=== PATIENT | male | born 1940 | race Caucasian/White ===

== ENCOUNTER 2017-11-07 08:00 | Outpatient (CLI) | payer MEDICARE, OTHER ==
[2017-11-07 13:13] LABS: BASOPHILS # (AUTO) 0.1 10^3/uL (0.0-0.1); EOSINOPHILS # (AUTO) 0.1 10^3/uL (0.0-0.7); EOSINOPHILS % (AUTO) 1.3 %; HGB - HEMOGLOBIN 15.6 g/dL (14.0-18.0); MEAN CORPUSCULAR HEMOGLOBIN 34.5 pg (27.0-31.0); MEAN CORPUSCULAR VOLUME 101.7 fL (80.0-94.0); MONOCYTES # (AUTO) 0.7 10^3/uL (0.0-1.0); MONOCYTES % (AUTO) 10.3 %; NEUTROPHILS # (AUTO) 3.5 10^3/uL (1.5-6.6); NEUTROPHILS % (AUTO) 55.4 %; PLT - PLATELET COUNT 185 10^3/uL (130-450); RED BLOOD COUNT 4.51 10^6/uL (4.70-6.10); RED CELL DISTRIBUTION WIDTH 15.1 % (12.0-15.0); WHITE BLOOD COUNT 6.4 x10^3/uL (4.8-10.8)
[2017-11-07 13:23] LABS: ALBUMIN 4.2 g/dL (3.2-5.5); ALBUMIN/GLOBULIN RATIO 1.6 (1.0-2.2); ALKALINE PHOSPHATASE 60 IU/L (42-121); ALT ALANINE AMINOTRANSFERASE 33 IU/L (10-60); AST ASPARTATE AMINOTRANSFERASE 34 IU/L (10-42); BILIRUBIN,TOTAL 0.7 mg/dL (0.2-1.0); BUN - BLOOD UREA NITROGEN 15 mg/dL (6-20); CALCIUM 9.1 mg/dL (8.5-10.3); CARBON DIOXIDE - CO2 30 mmol/L (21-32); CHLORIDE 101 mmol/L (101-111); CHOL/HDL RATIO 4.5 (<5.0); CHOLESTEROL 234 mg/dL; GFR - MDRD 72 (>89); GLUCOSE 107 mg/dL (70-100); HDL CHOLESTEROL 52 mg/dL; LDL CHOLESTEROL,CALCULATED 144 mg/dL; LDL/HDL RATIO 2.8 (<3.6); SODIUM 138 mmol/L (135-145); TOTAL PROTEIN 6.9 g/dL (6.7-8.2); VLDL CHOLESTEROL 38 mg/dL
== END 2017-11-07 08:01 | disposition home or self-care (01) ==
LOC: LAB.WCP 08:00
PROVIDERS: ATTEND Family Medicine
DX: C61 Malignant neoplasm of prostate (principal); E78.5 Hyperlipidemia, unspecified; I10 Essential (primary) hypertension
CPT/HCPCS: 36415; 80053; 80061; 83721; 84153; 85025

== ENCOUNTER 2018-08-12 13:34 | Outpatient (CLI) | payer MEDICARE, OTHER ==
[2018-08-12 18:56] LABS: INR 1.7 (0.8-1.2); PT - PROTHROMBIN TIME 19.1 secs (9.9-12.6)
== END 2018-08-12 13:35 | disposition home or self-care (01) ==
LOC: LAB.WCP 13:34
PROVIDERS: ATTEND Family Medicine
DX: I48.91 Unspecified atrial fibrillation (principal); Z79.01 Long term (current) use of anticoagulants
CPT/HCPCS: 36415; 85610

== ENCOUNTER 2018-11-15 08:30 | Outpatient (CLI) | payer MEDICARE, OTHER | END 2018-11-15 23:59 | disposition home or self-care (01) | LOC: LAB.WCP 08:30 | PROVIDERS: ATTEND Family Medicine | DX: R19.7 Diarrhea, unspecified (principal) | CPT/HCPCS: 81599; 83630; 86592; 87045; 87046; 87493 ==

== ENCOUNTER 2018-12-05 08:00 | Outpatient (CLI) | payer MEDICARE, OTHER | END 2018-12-05 23:59 | disposition home or self-care (01) | LOC: LAB.WCP 08:00 | PROVIDERS: ATTEND Family Medicine | DX: I48.91 Unspecified atrial fibrillation (principal); Z79.01 Long term (current) use of anticoagulants ==

== ENCOUNTER 2018-12-20 08:00 | Outpatient (CLI) | payer MEDICARE, OTHER | END 2018-12-20 23:59 | disposition home or self-care (01) | LOC: LAB.WCP 08:00 | PROVIDERS: ATTEND Family Medicine | DX: I48.91 Unspecified atrial fibrillation (principal); Z79.01 Long term (current) use of anticoagulants | CPT/HCPCS: 81025 ==

== ENCOUNTER 2019-01-17 08:00 | Outpatient (CLI) | payer MEDICARE, OTHER | END 2019-01-17 23:59 | disposition home or self-care (01) | LOC: LAB.WCP 08:00 | PROVIDERS: ATTEND Family Medicine | DX: I48.91 Unspecified atrial fibrillation (principal); Z79.01 Long term (current) use of anticoagulants ==

== ENCOUNTER 2019-01-31 08:00 | Outpatient (CLI) | payer MEDICARE, OTHER | END 2019-01-31 08:01 | disposition home or self-care (01) | LOC: LAB.WCP 08:00 | PROVIDERS: ATTEND Family Medicine | DX: I48.91 Unspecified atrial fibrillation (principal); Z79.01 Long term (current) use of anticoagulants ==

== ENCOUNTER 2019-02-07 08:00 | Outpatient (CLI) | payer MEDICARE, OTHER | END 2019-02-07 23:59 | disposition home or self-care (01) | LOC: LAB.WCP 08:00 | PROVIDERS: ATTEND Family Medicine | DX: I48.91 Unspecified atrial fibrillation (principal); Z79.01 Long term (current) use of anticoagulants ==

== ENCOUNTER 2019-02-20 08:00 | Outpatient (CLI) | payer MEDICARE, OTHER | END 2019-02-20 23:59 | disposition home or self-care (01) | LOC: LAB.WCP 08:00 | PROVIDERS: ATTEND Family Medicine | DX: I48.91 Unspecified atrial fibrillation (principal); Z79.01 Long term (current) use of anticoagulants ==

== ENCOUNTER 2019-03-06 08:00 | Outpatient (CLI) | payer MEDICARE, OTHER | END 2019-03-06 08:01 | disposition home or self-care (01) | LOC: LAB.WCP 08:00 | PROVIDERS: ATTEND Family Medicine | DX: I48.91 Unspecified atrial fibrillation (principal); Z79.01 Long term (current) use of anticoagulants ==

== ENCOUNTER 2019-03-13 08:00 | Outpatient (CLI) | payer MEDICARE, OTHER | END 2019-03-13 23:59 | disposition home or self-care (01) | LOC: LAB.WCP 08:00 | PROVIDERS: ATTEND Family Medicine | DX: I48.91 Unspecified atrial fibrillation (principal); Z79.01 Long term (current) use of anticoagulants ==

== ENCOUNTER 2019-03-27 08:00 | Outpatient (CLI) | payer MEDICARE, OTHER | END 2019-03-27 08:01 | disposition home or self-care (01) | LOC: LAB.WCP 08:00 | PROVIDERS: ATTEND Family Medicine | DX: I48.91 Unspecified atrial fibrillation (principal); Z79.01 Long term (current) use of anticoagulants ==

== ENCOUNTER 2019-04-24 08:00 | Outpatient (CLI) | payer MEDICARE, OTHER | END 2019-04-24 08:01 | disposition home or self-care (01) | LOC: LAB.WCP 08:00 | PROVIDERS: ATTEND Family Medicine | DX: I48.91 Unspecified atrial fibrillation (principal); Z79.01 Long term (current) use of anticoagulants ==

== ENCOUNTER 2019-05-02 08:00 | Outpatient (CLI) | payer MEDICARE, OTHER | END 2019-05-02 23:59 | disposition home or self-care (01) | LOC: LAB.WCP 08:00 | PROVIDERS: ATTEND Family Medicine | DX: I48.91 Unspecified atrial fibrillation (principal); Z79.01 Long term (current) use of anticoagulants ==

== ENCOUNTER 2019-05-15 08:00 | Outpatient (CLI) | payer MEDICARE, OTHER | END 2019-05-15 23:59 | disposition home or self-care (01) | LOC: LAB.WCP 08:00 | PROVIDERS: ATTEND Family Medicine | DX: I48.91 Unspecified atrial fibrillation (principal); Z79.01 Long term (current) use of anticoagulants ==

== ENCOUNTER 2019-05-22 08:00 | Outpatient (CLI) | payer MEDICARE, OTHER | END 2019-05-22 23:59 | disposition home or self-care (01) | LOC: LAB.WCP 08:00 | PROVIDERS: ATTEND Family Medicine | DX: I48.91 Unspecified atrial fibrillation (principal); Z79.01 Long term (current) use of anticoagulants ==

== ENCOUNTER 2019-06-06 08:00 | Outpatient (CLI) | payer MEDICARE, OTHER | END 2019-06-06 23:59 | disposition home or self-care (01) | LOC: LAB.WCP 08:00 | PROVIDERS: ATTEND Family Medicine | DX: I48.91 Unspecified atrial fibrillation (principal); Z79.01 Long term (current) use of anticoagulants ==

== ENCOUNTER 2019-06-12 08:00 | Outpatient (CLI) | payer MEDICARE, OTHER | END 2019-06-12 23:59 | disposition home or self-care (01) | LOC: LAB.WCP 08:00 | PROVIDERS: ATTEND Internal Medicine Cardiovascular Disease | DX: I48.91 Unspecified atrial fibrillation (principal) | CPT/HCPCS: 36415; 82550; 85651 ==

== ENCOUNTER 2019-06-20 08:00 | Outpatient (CLI) | payer MEDICARE, OTHER | END 2019-06-20 23:59 | disposition home or self-care (01) | LOC: LAB.WCP 08:00 | PROVIDERS: ATTEND Family Medicine | DX: I48.91 Unspecified atrial fibrillation (principal); Z79.01 Long term (current) use of anticoagulants ==

== ENCOUNTER 2019-06-30 08:00 | Outpatient (CLI) | payer MEDICARE, OTHER | END 2019-06-30 23:59 | disposition home or self-care (01) | LOC: LAB.WCP 08:00 | PROVIDERS: ATTEND Physician Assistant Medical | DX: Z79.01 Long term (current) use of anticoagulants (principal); I48.91 Unspecified atrial fibrillation ==

== ENCOUNTER 2019-07-28 08:00 | Outpatient (CLI) | payer MEDICARE, OTHER | END 2019-07-28 23:59 | disposition home or self-care (01) | LOC: LAB.WCP 08:00 | PROVIDERS: ATTEND Physician Assistant Medical | DX: Z79.01 Long term (current) use of anticoagulants (principal); I48.91 Unspecified atrial fibrillation ==

== ENCOUNTER 2019-08-04 08:00 | Outpatient (CLI) | payer MEDICARE, OTHER | END 2019-08-04 23:59 | disposition home or self-care (01) | LOC: LAB.WCP 08:00 | PROVIDERS: ATTEND Physician Assistant Medical | DX: Z79.01 Long term (current) use of anticoagulants (principal); I48.91 Unspecified atrial fibrillation ==

== ENCOUNTER 2019-08-08 13:26 | Outpatient (CLI) | payer MEDICARE, OTHER ==
[2019-08-08 19:18] LABS: BASOPHILS # (AUTO) 0.1 10^3/uL (0.0-0.1); BASOPHILS % (AUTO) 1.1 %; EOSINOPHILS # (AUTO) 0.1 10^3/uL (0.0-0.7); EOSINOPHILS % (AUTO) 1.4 %; HGB - HEMOGLOBIN 14.7 g/dL (14.0-18.0); LYMPHOCYTES # (AUTO) 2.1 10^3/uL (1.5-3.5); LYMPHOCYTES % (AUTO) 33.7 %; MEAN CORPUSCULAR HEMOGLOBIN 33.3 pg (27.0-31.0); MEAN CORPUSCULAR HGB CONC 32.9 g/dL (32.0-36.0); MEAN CORPUSCULAR VOLUME 101.1 fL (80.0-94.0); MEAN PLATELET VOLUME 10.6 fL (7.4-11.4); MONOCYTES # (AUTO) 0.7 10^3/uL (0.0-1.0); MONOCYTES % (AUTO) 11.2 %; NEUTROPHILS # (AUTO) 3.3 10^3/uL (1.5-6.6); NEUTROPHILS % (AUTO) 52.1 %; PLT - PLATELET COUNT 200 10^3/uL (130-450); RED BLOOD COUNT 4.42 10^6/uL (4.70-6.10); RED CELL DISTRIBUTION WIDTH 15.1 % (12.0-15.0); WHITE BLOOD COUNT 6.3 x10^3/uL (4.8-10.8)
[2019-08-08 19:31] LABS: ALBUMIN 4.3 g/dL (3.2-5.5); ALBUMIN/GLOBULIN RATIO 1.6 (1.0-2.2); BILIRUBIN,TOTAL 0.8 mg/dL (0.2-1.0); CALCIUM 9.5 mg/dL (8.5-10.3); CREATININE 0.8 mg/dL (0.6-1.2)
== END 2019-08-08 23:59 | disposition home or self-care (01) ==
LOC: LAB.WCP 13:26
PROVIDERS: ATTEND Family Medicine
DX: I10 Essential (primary) hypertension (principal)
CPT/HCPCS: 36415; 80053; 85025

== ENCOUNTER 2019-08-22 10:00 | Outpatient (CLI) | payer MEDICARE, OTHER | END 2019-08-22 23:59 | disposition home or self-care (01) | LOC: LAB.R 10:00 | PROVIDERS: ATTEND Family Medicine | DX: N39.0 Urinary tract infection, site not specified (principal) | CPT/HCPCS: 87086 ==

== ENCOUNTER 2019-09-29 08:00 | Outpatient (CLI) | payer MEDICARE, OTHER | END 2019-09-29 23:59 | disposition home or self-care (01) | LOC: LAB.WCP 08:00 | PROVIDERS: ATTEND Physician Assistant Medical | DX: Z79.01 Long term (current) use of anticoagulants (principal) ==

== ENCOUNTER 2019-10-13 08:00 | Outpatient (CLI) | payer MEDICARE, OTHER | END 2019-10-13 23:59 | disposition home or self-care (01) | LOC: LAB.WCP 08:00 | PROVIDERS: ATTEND Physician Assistant Medical | DX: Z79.01 Long term (current) use of anticoagulants (principal); I48.91 Unspecified atrial fibrillation ==

== ENCOUNTER 2019-10-27 08:00 | Outpatient (CLI) | payer MEDICARE, OTHER | END 2019-10-27 23:59 | disposition home or self-care (01) | LOC: LAB.WCP 08:00 | PROVIDERS: ATTEND Physician Assistant Medical | DX: Z79.01 Long term (current) use of anticoagulants (principal); I48.91 Unspecified atrial fibrillation ==

== ENCOUNTER 2019-11-10 08:00 | Outpatient (CLI) | payer MEDICARE, OTHER | END 2019-11-10 23:59 | disposition home or self-care (01) | LOC: LAB.WCP 08:00 | PROVIDERS: ATTEND Family Medicine | DX: I48.91 Unspecified atrial fibrillation (principal); Z79.01 Long term (current) use of anticoagulants ==

== ENCOUNTER 2019-11-24 08:00 | Outpatient (CLI) | payer MEDICARE, OTHER | END 2019-11-24 23:59 | disposition home or self-care (01) | LOC: LAB.WCP 08:00 | PROVIDERS: ATTEND Physician Assistant Medical | DX: I48.91 Unspecified atrial fibrillation (principal); Z79.01 Long term (current) use of anticoagulants ==

== ENCOUNTER 2019-12-22 08:00 | Outpatient (CLI) | payer MEDICARE, OTHER | END 2019-12-22 23:59 | disposition home or self-care (01) | LOC: LAB.WCP 08:00 | PROVIDERS: ATTEND Family Medicine | DX: I48.91 Unspecified atrial fibrillation (principal); Z79.01 Long term (current) use of anticoagulants ==

== ENCOUNTER 2020-01-12 08:00 | Outpatient (CLI) | payer MEDICARE, OTHER | END 2020-01-12 23:59 | disposition home or self-care (01) | LOC: LAB.WCP 08:00 | PROVIDERS: ATTEND Family Medicine | DX: I48.91 Unspecified atrial fibrillation (principal); Z79.01 Long term (current) use of anticoagulants ==

== ENCOUNTER 2020-02-02 08:00 | Outpatient (CLI) | payer MEDICARE, OTHER | END 2020-02-02 23:59 | disposition home or self-care (01) | LOC: LAB.WCP 08:00 | PROVIDERS: ATTEND Family Medicine | DX: I48.91 Unspecified atrial fibrillation (principal); Z79.01 Long term (current) use of anticoagulants ==

== ENCOUNTER 2020-03-01 08:00 | Outpatient (CLI) | payer MEDICARE, OTHER | END 2020-03-01 08:01 | disposition home or self-care (01) | LOC: LAB.WCP 08:00 | PROVIDERS: ATTEND Family Medicine | DX: I48.91 Unspecified atrial fibrillation (principal); Z79.01 Long term (current) use of anticoagulants ==

== ENCOUNTER 2020-03-15 08:00 | Outpatient (CLI) | payer MEDICARE, OTHER | END 2020-03-15 23:59 | disposition home or self-care (01) | LOC: LAB.WCP 08:00 | PROVIDERS: ATTEND Family Medicine | DX: I48.91 Unspecified atrial fibrillation (principal); Z79.01 Long term (current) use of anticoagulants ==

== ENCOUNTER 2020-04-05 08:00 | Outpatient (CLI) | payer MEDICARE, OTHER | END 2020-04-05 23:59 | disposition home or self-care (01) | LOC: LAB.WCP 08:00 | PROVIDERS: ATTEND Family Medicine | DX: I48.91 Unspecified atrial fibrillation (principal); Z79.01 Long term (current) use of anticoagulants ==

== ENCOUNTER 2020-05-03 08:00 | Outpatient (CLI) | payer MEDICARE, OTHER | END 2020-05-03 23:59 | disposition home or self-care (01) | LOC: LAB.WCP 08:00 | PROVIDERS: ATTEND Family Medicine | DX: I48.91 Unspecified atrial fibrillation (principal); Z79.01 Long term (current) use of anticoagulants ==

== ENCOUNTER 2020-06-01 08:00 | Outpatient (CLI) | payer MEDICARE, OTHER | END 2020-06-01 23:59 | disposition home or self-care (01) | LOC: LAB.WCP 08:00 | PROVIDERS: ATTEND Family Medicine | DX: I48.91 Unspecified atrial fibrillation (principal); Z79.01 Long term (current) use of anticoagulants ==

== ENCOUNTER 2020-10-12 09:15 | Outpatient (CLI) | payer MEDICARE, OTHER ==
[2020-10-12 13:20] LABS: BASOPHILS # (AUTO) 0.1 10^3/uL (0.0-0.1); BASOPHILS % (AUTO) 1.4 %; EOSINOPHILS # (AUTO) 0.1 10^3/uL (0.0-0.7); EOSINOPHILS % (AUTO) 1.4 %; HGB - HEMOGLOBIN 15.5 g/dL (14.0-18.0); LYMPHOCYTES # (AUTO) 2.2 10^3/uL (1.5-3.5); LYMPHOCYTES % (AUTO) 30.3 %; MEAN CORPUSCULAR HEMOGLOBIN 34.3 pg (27.0-31.0); MEAN CORPUSCULAR HGB CONC 33.5 g/dL (32.0-36.0); MEAN CORPUSCULAR VOLUME 102.2 fL (80.0-94.0); MONOCYTES # (AUTO) 0.8 10^3/uL (0.0-1.0); NEUTROPHILS % (AUTO) 55.6 %; PLT - PLATELET COUNT 211 10^3/uL (130-450); RED BLOOD COUNT 4.52 10^6/uL (4.70-6.10); WHITE BLOOD COUNT 7.3 x10^3/uL (4.8-10.8)
[2020-10-12 13:49] LABS: ALBUMIN 4.5 g/dL (3.2-5.5); ALBUMIN/GLOBULIN RATIO 1.7 (1.0-2.2); ALKALINE PHOSPHATASE 66 IU/L (42-121); ALT ALANINE AMINOTRANSFERASE 38 IU/L (10-60); AST ASPARTATE AMINOTRANSFERASE 35 IU/L (10-42); BILIRUBIN,TOTAL 0.9 mg/dL (0.2-1.0); BUN - BLOOD UREA NITROGEN 30 mg/dL (6-20); CALCIUM 9.6 mg/dL (8.5-10.3); CARBON DIOXIDE - CO2 28 mmol/L (21-32); CHLORIDE 100 mmol/L (101-111); CHOL/HDL RATIO 5.1 (<5.0); CHOLESTEROL 229 mg/dL; CREATININE 1.3 mg/dL (0.6-1.2); GLUCOSE 114 mg/dL (70-100); HDL CHOLESTEROL 45 mg/dL; LDL CHOLESTEROL,CALCULATED 155 mg/dL; LDL/HDL RATIO 3.4 (<3.6); SODIUM 138 mmol/L (135-145); TOTAL PROTEIN 7.2 g/dL (6.7-8.2); VLDL CHOLESTEROL 29 mg/dL
== END 2020-10-12 23:59 | disposition home or self-care (01) ==
LOC: LAB.WCP 09:15
PROVIDERS: ATTEND Physician Assistant Medical
DX: I10 Essential (primary) hypertension (principal); E78.5 Hyperlipidemia, unspecified
CPT/HCPCS: 36415; 80053; 80061; 83721; 85025

== ENCOUNTER 2021-01-13 08:00 | Outpatient (CLI) | payer MEDICARE, OTHER ==
[2021-01-13 18:01] LABS: CALCIUM 9.8 mg/dL (8.5-10.3); CREATININE 0.8 mg/dL (0.6-1.2); POTASSIUM 3.8 mmol/L (3.5-5.0)
[2021-01-13 18:16] LABS: THYROID STIMULATING HORMONE 1.59 uIU/mL (0.34-5.60)
[2021-01-13 18:18] LABS: FREE T3 2.95 pg/mL (2.5-3.9); FREE T4 (FREE THYROXINE) 0.88 ng/dL (0.58-1.64)
== END 2021-01-13 23:59 | disposition home or self-care (01) ==
LOC: LAB.WCP 08:00
PROVIDERS: ATTEND Family Medicine
DX: N18.31 Chronic kidney disease, stage 3a (principal); E87.6 Hypokalemia; I48.91 Unspecified atrial fibrillation
CPT/HCPCS: 36415; 80048; 84439; 84443; 84481

== ENCOUNTER 2021-06-24 13:18 | Outpatient (CLI) | payer MEDICARE, OTHER ==
--- NOTE | 2021-06-24 13:43 | XRAY Report ---
PROCEDURE: Chest 2 View X-Ray INDICATIONS: ATRIAL FIBRILLATION,UNSPECIFIED TYPE TECHNIQUE: 2 view(s) of the chest. COMPARISON: None. FINDINGS: Surgical changes and devices: None. Lungs and pleura: No pleural effusions or pneumothorax. Lungs are clear. Mediastinum: Mediastinal contours are normal. Heart size is enlarged. Bones and chest wall: No suspicious bony abnormalities. Soft tissues appear unremarkable. IMPRESSION: No focal infiltrate, pleural effusion or pneumothorax. Mild cardiomegaly. Reviewed by: Alex Freire MD on 06/24/2021 1:42 PM PDT Approved by: Alex Freire MD on 06/24/2021 1:42 PM PDT Station ID: [id number]
== END 2021-06-24 13:19 | disposition home or self-care (01) ==
LOC: DI 13:18
PROVIDERS: ATTEND Internal Medicine Cardiovascular Disease
DX: I48.91 Unspecified atrial fibrillation (principal); I51.7 Cardiomegaly

== ENCOUNTER 2021-08-11 08:55 | Outpatient (CLI) | payer MEDICARE, OTHER ==
[2021-08-11 09:22] LABS: BASOPHILS # (AUTO) 0.1 10^3/uL (0.0-0.1); BASOPHILS % (AUTO) 1.6 %; EOSINOPHILS # (AUTO) 0.1 10^3/uL (0.0-0.7); EOSINOPHILS % (AUTO) 1.8 %; HCT - HEMATOCRIT 44.5 % (42.0-52.0); HGB - HEMOGLOBIN 15.3 g/dL (14.0-18.0); LYMPHOCYTES % (AUTO) 40.9 %; MEAN CORPUSCULAR HEMOGLOBIN 35.2 pg (27.0-31.0); MEAN CORPUSCULAR HGB CONC 34.4 g/dL (32.0-36.0); MEAN CORPUSCULAR VOLUME 102.3 fL (80.0-94.0); MEAN PLATELET VOLUME 9.8 fL (7.4-11.4); MONOCYTES # (AUTO) 0.5 10^3/uL (0.0-1.0); NEUTROPHILS # (AUTO) 2.2 10^3/uL (1.5-6.6); NEUTROPHILS % (AUTO) 44.3 %; PLT - PLATELET COUNT 176 10^3/uL (130-450); RED BLOOD COUNT 4.35 10^6/uL (4.70-6.10); RED CELL DISTRIBUTION WIDTH 14.4 % (12.0-15.0); WHITE BLOOD COUNT 4.9 x10^3/uL (4.8-10.8)
[2021-08-11 09:41] LABS: ALBUMIN 4.2 g/dL (3.2-5.5); ALBUMIN/GLOBULIN RATIO 1.6 (1.0-2.2); ALKALINE PHOSPHATASE 66 IU/L (42-121); ALT ALANINE AMINOTRANSFERASE 32 IU/L (10-60); AST ASPARTATE AMINOTRANSFERASE 32 IU/L (10-42); BILIRUBIN,TOTAL 0.9 mg/dL (0.2-1.0); BUN - BLOOD UREA NITROGEN 18 mg/dL (6-20); CALCIUM 9.6 mg/dL (8.5-10.3); CARBON DIOXIDE - CO2 29 mmol/L (21-32); CHLORIDE 102 mmol/L (101-111); CHOL/HDL RATIO 4.3 (<5.0); CHOLESTEROL 221 mg/dL; CREATININE 1.1 mg/dL (0.6-1.2); GFR - MDRD 64 (>89); GLUCOSE 107 mg/dL (70-100); HDL CHOLESTEROL 52 mg/dL; LDL CHOLESTEROL,CALCULATED 140 mg/dL; LDL/HDL RATIO 2.7 (<3.6); POTASSIUM 3.9 mmol/L (3.5-5.0); SODIUM 142 mmol/L (135-145); TOTAL PROTEIN 6.9 g/dL (6.7-8.2); TRIGLYCERIDES 144 mg/dL; URIC ACID 4.7 mg/dL (2.6-7.2); VLDL CHOLESTEROL 29 mg/dL
[2021-08-11 09:51] LABS: THYROID STIMULATING HORMONE 2.84 uIU/mL (0.34-5.60)
[2021-08-11 12:39] LABS: ESTIMATED AVERAGE GLUCOSE 108 mg/dL (70-100); HEMOGLOBIN A1c% 5.4 % (4.27-6.07)
== END 2021-08-11 08:56 | disposition home or self-care (01) ==
LOC: LAB 08:55
PROVIDERS: ATTEND Family Medicine
DX: I12.9 Hypertensive chronic kidney disease with stage 1 through stage 4 chronic kidney disease, or unspecified chronic kidney disease (principal); N18.31 Chronic kidney disease, stage 3a; E87.6 Hypokalemia; E78.5 Hyperlipidemia, unspecified; E79.0 Hyperuricemia without signs of inflammatory arthritis and tophaceous disease; R73.9 Hyperglycemia, unspecified
CPT/HCPCS: 36415; 80053; 80061; 83036; 83721; 84443; 84550; 85025

== ENCOUNTER 2022-10-18 09:59 | Outpatient (CLI) | payer MEDICARE, OTHER ==
[2022-10-18 10:23] LABS: BASOPHILS # (AUTO) 0.1 10^3/uL (0.0-0.1); BASOPHILS % (AUTO) 1.3 %; EOSINOPHILS # (AUTO) 0.1 10^3/uL (0.0-0.7); EOSINOPHILS % (AUTO) 1.5 %; HCT - HEMATOCRIT 44.7 % (42.0-52.0); HGB - HEMOGLOBIN 14.7 g/dL (14.0-18.0); LYMPHOCYTES # (AUTO) 1.9 10^3/uL (1.5-3.5); LYMPHOCYTES % (AUTO) 27.6 %; MEAN CORPUSCULAR HEMOGLOBIN 32.7 pg (27.0-31.0); MEAN CORPUSCULAR HGB CONC 32.9 g/dL (32.0-36.0); MEAN CORPUSCULAR VOLUME 99.6 fL (80.0-94.0); MEAN PLATELET VOLUME 10.1 fL (7.4-11.4); MONOCYTES # (AUTO) 0.5 10^3/uL (0.0-1.0); NEUTROPHILS # (AUTO) 4.2 10^3/uL (1.5-6.6); NEUTROPHILS % (AUTO) 62.2 %; PLT - PLATELET COUNT 241 10^3/uL (130-450); RED BLOOD COUNT 4.49 10^6/uL (4.70-6.10); RED CELL DISTRIBUTION WIDTH 13.5 % (12.0-15.0); WHITE BLOOD COUNT 6.8 x10^3/uL (4.8-10.8)
[2022-10-18 10:37] LABS: ALBUMIN 3.6 g/dL (3.2-5.5); ALBUMIN/GLOBULIN RATIO 1.2 (1.0-2.2); ALKALINE PHOSPHATASE 65 IU/L (42-121); ALT ALANINE AMINOTRANSFERASE 40 IU/L (10-60); AST ASPARTATE AMINOTRANSFERASE 37 IU/L (10-42); BILIRUBIN,TOTAL 0.6 mg/dL (0.2-1.0); BUN - BLOOD UREA NITROGEN 18 mg/dL (6-20); CALCIUM 9.5 mg/dL (8.5-10.3); CARBON DIOXIDE - CO2 31 mmol/L (21-32); CHLORIDE 101 mmol/L (101-111); CHOL/HDL RATIO 6.7 (<5.0); CHOLESTEROL 221 mg/dL; CREATININE 1.1 mg/dL (0.6-1.2); GFR - MDRD 64 (>89); GLUCOSE 113 mg/dL (70-100); HDL CHOLESTEROL 33 mg/dL; LDL CHOLESTEROL,CALCULATED 156 mg/dL; LDL/HDL RATIO 4.7 (<3.6); POTASSIUM 3.9 mmol/L (3.5-5.0); SODIUM 139 mmol/L (135-145); TOTAL PROTEIN 6.5 g/dL (6.7-8.2); TRIGLYCERIDES 162 mg/dL; VLDL CHOLESTEROL 32 mg/dL
[2022-10-18 10:48] LABS: THYROID STIMULATING HORMONE 2.34 uIU/mL (0.34-5.60)
[2022-10-18 13:11] LABS: ESTIMATED AVERAGE GLUCOSE 117 mg/dL (70-100); HEMOGLOBIN A1c% 5.7 % (4.27-6.07)
== END 2022-10-18 10:00 | disposition home or self-care (01) ==
LOC: LAB 09:59
PROVIDERS: ATTEND Family Medicine
DX: I48.91 Unspecified atrial fibrillation (principal); R19.4 Change in bowel habit; R73.9 Hyperglycemia, unspecified; Z79.01 Long term (current) use of anticoagulants; E79.0 Hyperuricemia without signs of inflammatory arthritis and tophaceous disease
CPT/HCPCS: 36415; 80053; 80061; 83036; 83721; 84443; 85025

== ENCOUNTER 2022-12-26 09:30 | Day surgery (SDC) | payer MEDICARE, OTHER ==
[2022-12-26] MEDS ORDERED: LACTATED RINGERS 1,000 ML IV ONE ×2 (10:13→14:30)
[2022-12-26] MEDS ORDERED: PROPOFOL 500 MG/50 ML 500 MG/50 ML VIAL ONE (10:49)
[2022-12-26] MEDS ORDERED: GLYCOPYRROLATE 1 MG/5 ML VIAL ONE (11:52)
--- NOTE | 2022-12-26 13:05 | ANESTHESIA ---
Pre-Anesthesia VS, & Labs - Diagnosis change in bowel habits - Procedure colonoscopy Vital Signs: Temp Pulse Resp BP Pulse Ox O2 Flow Rate 36.1 C L 73 24 156/95 H 97 12/26/22 10:14 12/26/22 10:14 12/26/22 10:14 12/26/22 10:14 12/26/22 10:14 Height: 6 ft 1 in Weight (kg): 101 kg Body Mass Index: 29.3 BMI Classification: Overweight - NPO >8 hours Home Medications and Allergies Home Medications: Ambulatory Orders Apixaban [Eliquis] 5 mg PO BID 12/19/22 Lactobacillus Combination No.4 [Probiotic] 1 each PO DAILY 12/19/22 Metoprolol Succinate [Toprol Xl] 25 mg PO DAILY 12/19/22 Turmeric 400 mg PO DAILY 12/19/22 Amlodipine Besylate 10 mg PO DAILY 05/10/16 allopurinoL [Allopurinol] 300 mg PO DAILY 05/10/16 hydroCHLOROthiazide [Hydrochlorothiazide] 12.5 mg PO DAILY 05/10/16 lisinopriL [Lisinopril] 10 mg PO DAILY 05/10/16 Apixaban [Eliquis] 5 mg PO BID 12/19/22 Lactobacillus Combination No.4 [Probiotic] 1 each PO DAILY 12/19/22 Metoprolol Succinate [Toprol Xl] 25 mg PO DAILY 12/19/22 Turmeric 400 mg PO DAILY 12/19/22 Allergies/Adverse Reactions: Allergies Allergy/AdvReac Type Severity Reaction Status Date / Time No Known Drug Allergies Allergy Verified 05/10/16 18:15 Anes History & Medical History - Anesthetic History Anesthesia Complications: reports: No previous complications - Medical History Cardiovascular: reports: Hypertension, Atrial fibrillation, Arrhythmia Pulmonary: reports: Shortness of breath Gastrointestinal: reports: Hemorrhoids Urinary: reports: Other (prostate cancer. s/p seed radiation) Neuro: reports: None Musculoskeletal: reports: Gout, Chronic back pain Endocrine/Autoimmune: reports: None Skin: reports: Other Smoking Status: Never smoker Psychosocial: reports: No issues indicated History of Cancer?: Yes (prostate) - Surgical History General: reports: Colonoscopy Eyes Ears Nose Throat (EENT): reports: Cataracts Cardiothoracic: reports: Other Urologic: reports: Prostatic surgery Dermatologic: reports: Skin cancer surgery Exam General: Alert, Oriented x3, Cooperative, No acute distress Dental: WNL Mouth Openin Fingerbreadth Mallampati classification: III Thyromental Distance: 4-6 cm Mental/Cognitive Status: Alert/Oriented X3, Normal for patient Plan Anesthesia Type: General, Total IV Consent for Procedure(s) Verified and Reviewed: Yes Code Status: Attempt Resuscitation ASA classification: 3-Severe systemic disease Is this case an emergency?: No
[2022-12-26] MEDS ORDERED: PROPOFOL 200 MG/20 ML VIAL IVP ONE (14:03)
[2022-12-26 15:13] VITALS: BP 126/78
--- NOTE | 2022-12-26 15:14 | ANESTHESIA POST OP EVALUATION ---
Anesthesia Post Eval - Post Anesthesia Eval Vitals: Last Vital Signs Temp 36.6 C 12/26/22 15:12 Pulse 65 12/26/22 15:12 Resp 16 12/26/22 15:12 BP 126/78 12/26/22 15:12 Pulse Ox 99 12/26/22 15:12 O2 Flow Rate CV Function Including HR & BP: Stable Pain Control: Satisfactory Nausea & Vomiting: Negative Mental Status: Baseline Respiratory Status: Airway Patent Hydration Status: Satisfactory Anesthesia Complications: None
== END 2022-12-26 09:31 | disposition home or self-care (01) ==
LOC: SDS 09:30
PROVIDERS: ATTEND Surgery
PROC: 0DBN8ZX Excision of Sigmoid Colon, Via Natural or Artificial Opening Endoscopic, Diagnostic (ICD-10-PCS; 2022-12-26)
PROC: 0DBP8ZZ Excision of Rectum, Via Natural or Artificial Opening Endoscopic (ICD-10-PCS; 2022-12-26)
PROC: 0DBG8ZX Excision of Left Large Intestine, Via Natural or Artificial Opening Endoscopic, Diagnostic (ICD-10-PCS; 2022-12-26)
PROC: 3E0H8KZ Introduction of Other Diagnostic Substance into Lower GI, Via Natural or Artificial Opening Endoscopic (ICD-10-PCS; 2022-12-26)
PROC: 0DBH8ZZ Excision of Cecum, Via Natural or Artificial Opening Endoscopic (ICD-10-PCS; principal; 2022-12-26 10:45)
DX: R19.4 Change in bowel habit (principal); K92.1 Melena; D12.0 Benign neoplasm of cecum; D12.8 Benign neoplasm of rectum; K57.30 Diverticulosis of large intestine without perforation or abscess without bleeding; I48.91 Unspecified atrial fibrillation; Z79.01 Long term (current) use of anticoagulants

== ENCOUNTER 2023-07-24 07:28 | Day surgery (SDC) | payer MEDICARE, OTHER ==
[2023-07-24] MEDS ORDERED: LACTATED RINGERS 1,000 ML IV ONE ×3 (07:43→09:50)
[2023-07-24] MEDS ORDERED: PROPOFOL 500 MG/50 ML 500 MG/50 ML VIAL ONE (08:39)
--- NOTE | 2023-07-24 09:12 | ANESTHESIA ---
Pre-Anesthesia VS, & Labs - Diagnosis tublular adenoma - Procedure sigmoidoscopy Vital Signs: Temp Pulse Resp BP Pulse Ox O2 Flow Rate 36.2 C L 66 14 136/89 H 93 07/24/23 07:52 07/24/23 07:52 07/24/23 07:52 07/24/23 07:52 07/24/23 07:52 Height: 6 ft 1 in Weight (kg): 103.1 kg Body Mass Index: 29.9 BMI Classification: Overweight - NPO >8 hours Home Medications and Allergies Amlodipine Besylate 5 mg PO DAILY 05/10/16 allopurinoL [Allopurinol] 300 mg PO DAILY 05/10/16 hydroCHLOROthiazide [Hydrochlorothiazide] 12.5 mg PO DAILY 05/10/16 lisinopriL [Lisinopril] 10 mg PO DAILY 05/10/16 Apixaban [Eliquis] 5 mg PO BID 12/19/22 Metoprolol Succinate [Toprol Xl] 25 mg PO DAILY 12/19/22 Turmeric 400 mg PO DAILY 12/19/22 Allergies/Adverse Reactions: Allergies Allergy/AdvReac Type Severity Reaction Status Date / Time No Known Drug Allergies Allergy Verified 07/23/23 12:39 Anes History & Medical History - Anesthetic History Anesthesia Complications: reports: No previous complications - Medical History Cardiovascular: reports: Hypertension, Atrial fibrillation, Arrhythmia Pulmonary: reports: Shortness of breath Gastrointestinal: reports: Colon polyps, Hemorrhoids Urinary: reports: Other Neuro: reports: None Musculoskeletal: reports: Gout, Chronic back pain Endocrine/Autoimmune: reports: None Skin: reports: Other Smoking Status: Never smoker Psychosocial: reports: No issues indicated History of Cancer?: Yes (prostate s/p radiation) - Surgical History General: reports: Colonoscopy Eyes Ears Nose Throat (EENT): reports: Cataracts Cardiothoracic: reports: Other Urologic: reports: Prostatic surgery Dermatologic: reports: Skin cancer surgery Exam General: Alert, Oriented x3, Cooperative, No acute distress Dental: WNL Mouth Openin Fingerbreadth Neck Mobility: Normal Mallampati classification: II Thyromental Distance: 4-6 cm Mental/Cognitive Status: Alert/Oriented X3, Normal for patient Plan Anesthesia Type: General Consent for Procedure(s) Verified and Reviewed: Yes Code Status: Attempt Resuscitation ASA classification: 3-Severe systemic disease Is this case an emergency?: No
[2023-07-24 10:10] VITALS: BP 111/86
[2023-07-24 10:30] VITALS: O2SAT 92
--- NOTE | 2023-07-24 11:19 | ANESTHESIA POST OP EVALUATION ---
Anesthesia Post Eval - Post Anesthesia Eval Vitals: Last Vital Signs Temp 36.6 C 07/24/23 09:50 Pulse 65 07/24/23 10:24 Resp 15 07/24/23 10:24 BP 111/86 H 07/24/23 10:24 Pulse Ox 92 07/24/23 10:24 O2 Flow Rate CV Function Including HR & BP: Stable Pain Control: Satisfactory Nausea & Vomiting: Negative Mental Status: Baseline Respiratory Status: Airway Patent Hydration Status: Satisfactory Anesthesia Complications: None
== END 2023-07-24 07:29 | disposition home or self-care (01) ==
LOC: SDS 07:28
PROVIDERS: ATTEND Surgery
PROC: 0DBP8ZZ Excision of Rectum, Via Natural or Artificial Opening Endoscopic (ICD-10-PCS; principal; 2023-07-24 09:30)
DX: D12.8 Benign neoplasm of rectum (principal); I48.91 Unspecified atrial fibrillation
CPT/HCPCS: 45338; J7120

== ENCOUNTER 2023-10-17 13:21 | Outpatient (CLI) | payer MEDICARE, OTHER ==
[2023-10-17 13:37] LABS: BASOPHILS # (AUTO) 0.1 10^3/uL (0.0-0.1); BASOPHILS % (AUTO) 1.3 %; EOSINOPHILS # (AUTO) 0.2 10^3/uL (0.0-0.7); EOSINOPHILS % (AUTO) 2.2 %; HCT - HEMATOCRIT 45.4 % (42.0-52.0); HGB - HEMOGLOBIN 15.3 g/dL (14.0-18.0); LYMPHOCYTES # (AUTO) 2.6 10^3/uL (1.5-3.5); LYMPHOCYTES % (AUTO) 31.4 %; MEAN CORPUSCULAR HEMOGLOBIN 32.8 pg (27.0-31.0); MEAN CORPUSCULAR HGB CONC 33.7 g/dL (32.0-36.0); MEAN CORPUSCULAR VOLUME 97.4 fL (80.0-94.0); MEAN PLATELET VOLUME 9.8 fL (7.4-11.4); MONOCYTES # (AUTO) 0.8 10^3/uL (0.0-1.0); NEUTROPHILS # (AUTO) 4.6 10^3/uL (1.5-6.6); NEUTROPHILS % (AUTO) 55.6 %; PLT - PLATELET COUNT 263 10^3/uL (130-450); RED BLOOD COUNT 4.66 10^6/uL (4.70-6.10); RED CELL DISTRIBUTION WIDTH 15.2 % (12.0-15.0); WHITE BLOOD COUNT 8.3 x10^3/uL (4.8-10.8)
[2023-10-17 13:49] LABS: ALBUMIN 4.2 g/dL (3.2-5.5); ALBUMIN/GLOBULIN RATIO 1.7 (1.0-2.2); ALKALINE PHOSPHATASE 74 IU/L (42-121); ALT ALANINE AMINOTRANSFERASE 28 IU/L (10-60); AST ASPARTATE AMINOTRANSFERASE 27 IU/L (10-42); BILIRUBIN,TOTAL 0.5 mg/dL (0.2-1.0); BUN - BLOOD UREA NITROGEN 19 mg/dL (6-20); CALCIUM 9.8 mg/dL (8.5-10.3); CARBON DIOXIDE - CO2 31 mmol/L (21-32); CHLORIDE 101 mmol/L (101-111); CHOLESTEROL 223 mg/dL; CREATININE 1.1 mg/dL (0.6-1.3); GFR - MDRD 64 (>89); GLUCOSE 96 mg/dL (74-104); HDL CHOLESTEROL 37 mg/dL; LDL CHOLESTEROL,CALCULATED 153 mg/dL; LDL/HDL RATIO 4.1 (<3.6); POTASSIUM 3.8 mmol/L (3.5-4.5); SODIUM 139 mmol/L (135-145); TOTAL PROTEIN 6.7 g/dL (6.4-8.9); TRIGLYCERIDES 166 mg/dL (48-352); URIC ACID 5.8 mg/dL (4.4-7.6); VLDL CHOLESTEROL 33 mg/dL
[2023-10-17 14:18] LABS: THYROID STIMULATING HORMONE 2.31 uIU/mL (0.34-5.60)
[2023-10-17 20:06] LABS: ESTIMATED AVERAGE GLUCOSE 111 mg/dL (70-100); HEMOGLOBIN A1c% 5.5 % (4.27-6.07)
== END 2023-10-17 13:22 | disposition home or self-care (01) ==
LOC: LAB 13:21
PROVIDERS: ATTEND Family Medicine
DX: I12.9 Hypertensive chronic kidney disease with stage 1 through stage 4 chronic kidney disease, or unspecified chronic kidney disease (principal); N18.31 Chronic kidney disease, stage 3a; R73.9 Hyperglycemia, unspecified; Z12.5 Encounter for screening for malignant neoplasm of prostate; I48.91 Unspecified atrial fibrillation; E79.0 Hyperuricemia without signs of inflammatory arthritis and tophaceous disease
CPT/HCPCS: 36415; 80053; 80061; 83036; 84403; 84443; 84550; 85025; G0103; 83721; 84153

== ENCOUNTER 2025-02-21 04:45 | Inpatient (IN) ==
--- OUTSIDE RECORDS SUMMARY | 2025-02-21 04:57 | EXTERNAL MEDICAL SUMMARY RPT | Continuity of Care Document ---
Author Organization [facility] Address [address] [place] [id number] Phone Problems date description facility 2025-01-27 10:46 Malignant neoplasm of prostate [facility] 2025-01-27 10:46 Disorder of mineral metabolism, unspecified [facility] 2025-01-27 10:46 Alcohol abuse, uncomplicated [facility] 2025-01-27 10:46 Unspecified atrial fibrillation [facility] 2025-01-27 10:46 Disorder of bone, unspecified [facility] 2025-01-27 10:46 Chronic kidney disease, stage 3 a [facility] 2025-01-27 12:14 Malignant neoplasm of prostate [facility] 2025-01-27 12:14 Disorder of mineral metabolism, unspecified [facility] 2025-01-27 12:14 Alcohol abuse, uncomplicated [facility] 2025-01-27 12:14 Unspecified atrial fibrillation [facility] 2025-01-27 12:14 Disorder of bone, unspecified [facility] 2025-01-27 12:14 Chronic kidney disease, stage 3 a [facility] 2025-01-28 00:04 Malignant neoplasm of prostate [facility] 2025-01-28 00:04 Disorder of mineral metabolism, unspecified [facility] 2025-01-28 00:04 Alcohol abuse, uncomplicated [facility] 2025-01-28 00:04 Unspecified atrial fibrillation [facility] 2025-01-28 00:04 Disorder of bone, unspecified [facility] 2025-01-28 00:04 Chronic kidney disease, stage 3 a [facility] 2025-01-29 15:37 Chronic kidney disease, stage 3 a [facility] 2025-02-04 00:01 Hyperlipidemia, unspecified [facility] 2025-02-04 00:01 Disorder of mineral metabolism, unspecified [facility] 2025-[facility] 00:01 Essential (primary) [facility]ensio [facility] 2025-02-04 00:01 Unspecified atrial fibrillation [facility] 2025-02-04 00:01 Gout, unspecified [facility] 2025-02-04 00:01 Disorder of bone, [facility] 2025-02-04 00:01 Chronic kidney disease, stage 3 a [facility] 2025-02-04 00:01 Hyperglycemia, unspecified [facility] 2025-02-04 00:01 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 NUCLEATED RED BLOOD CELLS AUTO 2025-01-27 10:51 [facility] 0.0 /100wbc (missing) NRBC ABSOLUTE COUNT (AUTO) 2025-01-27 10:51 [facility] 0.00 x10 3/ul (missing) BASOPHILS # (AUTO) 2025-01-27 10:51 [facility] 0.1 10 3/ul (missing) EOSINOPHILS # (AUTO) 2025-01-27 10:51 [facility] 0.1 10 3/ul (missing) BILIRUBIN,TOTAL 2025-01-27 10:51 [facility] 0.6 mg/dl As of March 2023 testing method has changed, this may include reference ranges. MONOCYTES # (AUTO) 2025-01-27 10:51 [facility] 0.7 10 3/ul (missing) CREATININE 2025-01-27 10:51 [facility] 1.2 mg/dl As of March 2023 testing method has changed, this may include reference ranges. ALBUMIN/GLOBULIN RATIO 2025-01-27 10:51 [facility] 1.7 (missing) (missing) MEAN PLATELET VOLUME 2025-01-27 10:51 [facility] 10.4 fl (missing) MEAN CORPUSCULAR VOLUME 2025-01-27 10:51 [facility] 100.9 fl (missing) CHLORIDE 2025-01-27 10:51 [facility] 102 mmol/l As of March 2023 testing method has changed, this may include reference ranges. GLUCOSE 2025-01-27 10:51 [facility] 117 mg/dl As of March 2023 testing method has changed, this may include reference ranges. RED CELL DISTRIBUTION WIDTH 2025-01-27 10:51 [facility] 14.6 % (missing) SODIUM 2025-01-27 10:51 [facility] 140 mmol/l (missing) HGB - HEMOGLOBIN 2025-01-27 10:51 [facility] 15.4 g/dl (missing) LYMPHOCYTES # (AUTO) 2025-01-27 10:51 [facility] 2.2 10 3/ul (missing) GLOBULIN 2025-01-27 10:51 [facility] 2.5 g/dl (missing) PLT - PLATELET COUNT 2025-01-27 10:51 [facility] 209 10 3/ul (missing) BUN - BLOOD UREA NITROGEN 2025-01-27 10:51 [facility] 21 mg/dl As of March 2023 testing method has changed, this may include reference ranges. POTASSIUM 2025-01-27 10:51 [facility] 3.6 mmol/l As of March 2023 testing method has changed, this may include reference ranges. AST ASPARTATE AMINOTRANSFERASE 2025-01-27 10:51 [facility] 31 iu/l As of March 2023 testing method has changed, this may include reference ranges. CARBON DIOXIDE - CO2 2025-01-27 10:51 [facility] 32 mmol/l As of March 2023 testing method has changed, this may include reference ranges. MEAN CORPUSCULAR HGB CONC 2025-01-27 10:51 [facility] 33.8 g/dl (missing) MEAN CORPUSCULAR HEMOGLOBIN 2025-01-27 10:51 [facility] 34.1 pg (missing) ALT ALANINE AMINOTRANSFERASE 2025-01-27 10:51 [facility] 35 iu/l As of March 2023 testing method has changed, this may include reference ranges. ALBUMIN 2025-01-27 10:51 [facility] 4.2 g/dl As of March 2023 testing method has changed, this may include reference ranges. RED BLOOD COUNT 2025-01-27 10:51 [facility] 4.51 10 6/ul (missing) NEUTROPHILS # (AUTO) 2025-01-27 10:51 [facility] 4.8 10 3/ul (missing) HCT - HEMATOCRIT 2025-01-27 10:51 [facility] 45.5 % (missing) GFR - MDRD 2025-01-27 10:51 [facility] 57 (missing) Social History date description facility
[2025-02-21 07:11] LABS: BASOPHILS # (AUTO) 0.1 10^3/uL (0.0-0.1); BASOPHILS % (AUTO) 0.8 %; EOSINOPHILS # (AUTO) 0.1 10^3/uL (0.0-0.7); EOSINOPHILS % (AUTO) 0.9 %; HCT - HEMATOCRIT 35.8 % (42.0-52.0); HGB - HEMOGLOBIN 12.1 g/dL (14.0-18.0); LYMPHOCYTES # (AUTO) 1.6 10^3/uL (1.5-3.5); LYMPHOCYTES % (AUTO) 15.4 %; MEAN CORPUSCULAR HEMOGLOBIN 34.2 pg (27.0-31.0); MEAN CORPUSCULAR HGB CONC 33.8 g/dL (32.0-36.0); MEAN CORPUSCULAR VOLUME 101.1 fL (80.0-94.0); MEAN PLATELET VOLUME 11.1 fL (7.4-11.4); MONOCYTES # (AUTO) 0.7 10^3/uL (0.0-1.0); MONOCYTES % (AUTO) 6.5 %; NEUTROPHILS # (AUTO) 8.1 10^3/uL (1.5-6.6); PLT - PLATELET COUNT 206 10^3/uL (130-450); RED BLOOD COUNT 3.54 10^6/uL (4.70-6.10); RED CELL DISTRIBUTION WIDTH 14.2 % (12.0-15.0); WHITE BLOOD COUNT 10.6 x10^3/uL (4.8-10.8)
--- NOTE | 2025-02-21 07:17 | ED Physician Documentation ---
History of Present Illness Stated complaint Stated Complaint: GI Chief complaint Chief Complaint: Abd Pain Additonal information Additional information: 84-year-old with history of atrial fibrillation on Eliquis presents with rectal bleeding. Patient thinks he may have had some bloody stools in the last couple days. Last night, he had at least 3 episodes of bloody stool. The last 1 had blood in the toilet water, which prompted him to come to the emergency department. He takes Eliquis for atrial fibrillation. He did have some rectal itching during the bowel movement. No nausea or vomiting. No abdominal pain. He did have colonoscopy a year and a half ago which showed 2 polyps that were excised. He is unsure of a history of diverticulosis. He did not notice any blood clots in the stool. Meds/Allgy Home Medications Ambulatory Orders Medication Instructions Recorded Confirmed amlodipine 10 mg tablet 5 mg PO DAILY 05/10/1602/03 lisinopril 10 mg tablet 10 mg PO DAILY 05/10/1603/25 apixaban 5 mg tablet (Eliquis) 5 mg PO BID 12/19/22 metoprolol succinate 25 mg 25 mg PO DAILY 12/19/2203/25 tablet,extended release 24 hr turmeric 400 mg capsule 400 mg PO DAILY 12/19/2203/25 amlodipine 5 mg tablet 10 mg PO QDAY 07/09/2402/03 tadalafil 20 mg tablet 20 mg PO .twice a week 07/0902/03/25 hydrochlorothiazide 12.5 mg tablet See Rx Instructions .Route 07/15/24 02/03/25 .COMPLEX #90 tabs Allergies Allergies Allergy/AdvReac Type Severity Reaction Status Date / Time No Known Drug Allergies Allergy Verified 02/21/25 04:59 PFSH Active Problems All Active Problems (Updated 02/21/25 @ 08:07 by Nathan Winchester MD) Acute anemia (Acute) Hematochezia (Acute) Gout (Acute) Somnolence (Acute) 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 (Acute 10/14/20) Anticoagulation adequate with anticoagulant therapy (Acute 07/16/15) Adenocarcinoma of prostate (Acute 10/18/17) Exudative age-related macular degeneration, left eye, with active choroidal neovascularization (Acute 04/25/23) Hydrocele, bilateral (Acute 07/24/07) Hypertension, essential, benign (Acute 08/28/06) Hypogonadism in male (Acute 10/15/23) Mild depression (Acute 01/16/23) 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) Sleep disorder (Acute 07/14/21) Neuropathy (Acute 05/11/16) Hypokalemia (Acute 10/14/20) Hyperlipidemia (Acute 08/28/06) Hyperglycemia (Acute 07/22/21) Expiratory wheezing (Acute 02/17/23) Erectile dysfunction (Acute 04/25/23) Atrial fibrillation (Acute 10/17/13) Arthritis, lumbar spine (Acute 02/17/16) Alcohol abuse, continuous drinking behavior (Acute 07/19/23) Alcohol abuse (Acute 04/02/08) Actinic keratosis (Acute 06/13/13) Thumb laceration (Acute) Medical History Medical History (Updated 02/21/25 @ 08:07 by Nathan Winchester MD) Acute COVID-19 (02/17/23) Family History Family History (Updated 07/09/24 @ 14:37 by Nina Figueroa LPN) Father Cancer Mother CVA (cerebral vascular accident) Grandfather Mental disorder Social History Social History (Updated 02/03/25 @ 15:50 by Nina Figueroa LPN) Smoking Status: Former smoker If you are a former smoker, when did you quit? 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 Heart rate is 75. Patient is not hypotensive. He is speaking in full sentences fluently. There is no abdominal tenderness. There is dried blood around the rectum. Digital rectal exam with bright red blood per rectum with small little blood clots. No external hemorrhoids present. Results Vitals Vitals: Vital Signs - 24 hr 02/21/25 04:51 02/21/25 05:30 02/21/25 06:59 Temperature 36.0 C L Temperature Source Axillary Pulse Rate 94 82 86 Respiratory Rate 16 20 18 Blood Pressure 119/73 98/68 104/78 O2 Saturation 96 94 95 O2 Source Room air Room air Room air Pain Intensity 1 Oxygen O2 Source Room air Labs Labs: Laboratory Tests 02/21/25 02/21/25 06:25 07:23 WBC 10.6 RBC 3.54 L Hgb 12.1 L Hct 35.8 L MCV 101.1 H MCH 34.2 H MCHC 33.8 RDW 14.2 Plt Count 206 MPV 11.1 Neut # (Auto) 8.1 H Lymph # (Auto) 1.6 Mclennan # (Auto) 0.7 Eos # (Auto) 0.1 Baso # (Auto) 0.1 Absolute Nucleated RBC 0.00 Nucleated RBC % 0.0 Sodium 141 Potassium 4.1 Chloride 108 Carbon Dioxide 27 Anion Gap 6.0 BUN 29 H Creatinine 1.2 Estimated GFR (MDRD) 57 L Glucose 139 H Calcium 8.9 Total Bilirubin 0.4 AST 19 ALT 23 Alkaline Phosphatase 56 Total Protein 5.2 L Albumin 3.6 Globulin 1.6 L Albumin/Globulin Ratio 2.3 H Lipase 15 Blood Type O POSITIVE Blood Type Recheck O POSITIVE Antibody Screen NEGATIVE PD Medical Decision Making ED course ED course: Presents with 1 day of acute hematochezia. Patient is hemodynamically stable here. There is bright red blood on my digital rectal exam. Hemoglobin shows a 3 point drop from last month. Given high risk of worsening GI bleeding, I will admit him to the hospital for further observation. I did review his colonoscopy report from a year and a half ago which showed 2 polyps that were excised. No report of diverticulosis. It is possible a polyp has returned, or he could have developed diverticulosis. He has no abdominal tenderness, so I do not think imaging is necessary. I considered GI bleed CT protocol, but with no active bleeding, I think this is of low yield. Type and screen was ordered in case transfusion is necessary. Patient admitted to the hospital and questions were answered. Discharge Plan Discharge Patient Disposition: 66 [facility] DC/Xfer Clinical Impression: Hematochezia, Acute anemia Prescriptions: No Action hydrochlorothiazide 12.5 mg tablet See Rx Instructions .ROUTE .COMPLEX Qty: 90 3RF Dose Instruction: TAKE 1 TABLET EVERY MORNING (MAKE AN APPOINTMENT) Rx Instructions: TAKE 1 TABLET EVERY MORNING (MAKE AN APPOINTMENT) amlodipine 10 MG tablet 5 mg PO DAILY lisinopril 10 MG tablet 10 mg PO DAILY metoprolol succinate 25 MG tablet extended release 24 hr 25 mg PO DAILY apixaban [Eliquis] 5 MG tablet 5 mg PO BID turmeric 400 MG capsule 400 mg PO DAILY tadalafil 20 mg tablet 20 mg PO .twice a week Patient Comments: Take 1 tablet by mouth twice a week as needed Before intercourse. amlodipine 5 mg tablet 10 mg PO QDAY Print Language: Gibraltarian
[2025-02-21 07:19] LABS: ALBUMIN 3.6 g/dL (3.2-5.5); ALBUMIN/GLOBULIN RATIO 2.3 (1.0-2.2); BILIRUBIN,TOTAL 0.4 mg/dL (0.2-1.0); CALCIUM 8.9 mg/dL (8.5-10.3); CREATININE 1.2 mg/dL (0.6-1.3); POTASSIUM 4.1 mmol/L (3.5-4.5); TOTAL PROTEIN 5.2 g/dL (6.4-8.9)
[2025-02-21] MEDS ORDERED: ONDANSETRON ODT 4 MG TABLET TL PRN (09:42)
[2025-02-21] MEDS ORDERED: ONDANSETRON 4 MG/2 ML VIAL IVP PRN (09:42)
[2025-02-21] MEDS: PANTOPRAZOLE 40 MG VIAL IVP SCH (10:12)
[2025-02-21] MEDS: LACTATED RINGERS 1,000 ML IV SCH (10:12)
[2025-02-21] MEDS: SODIUM CHLORIDE FLUSH 0.9% 10 ML SYRINGE IVP SCH (10:13)
--- NOTE | 2025-02-21 10:19 | PHARMACY PROGRESS NOTE ---
Best Possible Medication History Admit Date and Time: 02/21/25 [id number] Home Medications Medication Instructions Recorded Confirmed Type lisinopril 10 mg tablet 10 mg PO DAILY 05/10/1601/30 History apixaban 5 mg tablet (Eliquis) 5 mg PO BID 12/19/22 History metoprolol succinate 25 mg 25 mg PO DAILY 12/19/22 History tablet,extended release 24 hr turmeric 400 mg capsule 400 mg PO DAILY 12/19/22 History amlodipine 5 mg tablet 5 mg PO QDAY 07/09/24 History hydrochlorothiazide 12.5 mg tablet See Rx Instructions .Route 07/15/24 02/21/25 Rx .COMPLEX #90 tabs allopurinol 100 mg tablet 200 mg PO DAILY 02/21/25 History latanoprost 0.005 % eye drops 1 drp ophthalmic (eye) Q PM 02/21/25 02/21/25 History Processed by: Pharmacy Medications reviewed in ED?: No Medication History completed: Yes Patient Interview: Completed Secondary Source(s): Pharmacy records and Insurance records [facility] Statement: As the person ultimately responsible for medication therapy, providers are able to order a medication from an existing home medication list in [facility] via the "Reconcile Routine" prior to Confirmation of that medication by senior support analyst. Such practice is discouraged except when the physician, in their clinical judgment, deems that a medical need exists for a medication without regard to previous use.
--- NOTE | 2025-02-21 12:25 | HISTORY & PHYSICAL EXAMINATION ---
Chief Complaint Chief Complaint Chief Complaint: Bright red blood per rectum History of Present Illness Admitted From Admitted From:: Home History Obtained From Records Reviewed: EMR History obtained from: Patient Exam Limitations: None History of Present Illness HPI Comment/Other: Patient is a 84-year-old man with a history of atrial fibrillation on Eliquis who presents for bright red blood per rectum. He states that he had 3 episodes starting at around 1 AM last night. He noticed blood when wiping, and he noticed that the toilet bowl was also full of blood. He takes Eliquis regularly. He tried Motrin a few weeks ago, 1 dose, but other than that, does not regularly take NSAIDs. He was a former heavy alcohol user, but has now not had a drink for about 3 weeks. He has never withdrawn from alcohol or any alcohol related seizures. He has no abdominal pain, no nausea, no vomiting. Of note, patient did have a colonoscopy done on 07/24/[address] Reynoso revealed a 5 mm polyp in the rectum, as well as another 3 mm polyp in the rectum. Both of these were resected and removed with a cold snare. Pathology results revealed tubular adenomas. Patient has been on Eliquis for the past few years, previously he was on Coumadin. His rivet maker is Dr. Johns in [place]. He denies any lightheadedness, dizziness as well. In the ED, his blood pressure was 119/73, heart rate was 94, he was afebrile, saturating 96% on room air. Lab work was reviewedhis white count is 10.6, his hemoglobin was 12.1. Of note, when it was checked on 01/27/2025, it was 15.4. His creatinine was 1.2, which is around his baseline. He was admitted for bright red blood per rectum, anemia. Surgery was spoken with by the emergency room, and they are aware of the patient. Meds/Allgy Home Medications Ambulatory Orders Medication Instructions Recorded Confirmed lisinopril 10 mg tablet 10 mg PO DAILY 05/10/1601/30 apixaban 5 mg tablet (Eliquis) 5 mg PO BID 12/19/22 metoprolol succinate 25 mg 25 mg PO DAILY 12/19/22 tablet,extended release 24 hr turmeric 400 mg capsule 400 mg PO DAILY 12/19/22 amlodipine 5 mg tablet 5 mg PO QDAY 07/09/24 hydrochlorothiazide 12.5 mg tablet See Rx Instructions .Route 07/15/24 02/21/25 .COMPLEX #90 tabs allopurinol 100 mg tablet 200 mg PO DAILY 02/21/25 latanoprost 0.005 % eye drops 1 drp ophthalmic (eye) Q PM 02/21/25 02/21/25 Allergies Allergies Allergy/AdvReac Type Severity Reaction Status Date / Time No Known Drug Allergies Allergy Verified 02/21/25 04:59 PFSH Active Problems All Active Problems (Updated 02/21/25 @ 12:36 by Paco Friedman MD) Acute anemia (Acute) Hematochezia (Acute) Gout (Acute) Somnolence (Acute) 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 (Acute 10/14/20) Anticoagulation adequate with anticoagulant therapy (Acute 07/16/15) Adenocarcinoma of prostate (Acute 10/18/17) Exudative age-related macular degeneration, left eye, with active choroidal neovascularization (Acute 04/25/23) Hydrocele, bilateral (Acute 07/24/07) Hypertension, essential, benign (Acute 08/28/06) Hypogonadism in male (Acute 10/15/23) Mild depression (Acute 01/16/23) 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) Sleep disorder (Acute 07/14/21) Neuropathy (Acute 05/11/16) Hypokalemia (Acute 10/14/20) Hyperlipidemia (Acute 08/28/06) Hyperglycemia (Acute 07/22/21) Expiratory wheezing (Acute 02/17/23) Erectile dysfunction (Acute 04/25/23) Atrial fibrillation (Acute 10/17/13) Arthritis, lumbar spine (Acute 02/17/16) Alcohol abuse, continuous drinking behavior (Acute 07/19/23) Alcohol abuse (Acute 04/02/08) Actinic keratosis (Acute 06/13/13) Thumb laceration (Acute) Medical History Medical History Acute COVID-19 (02/17/23) Family History Family History Father Cancer Mother CVA (cerebral vascular accident) Grandfather Mental disorder Social History Social History Smoking Status: Former smoker If you are a former smoker, when did you quit? 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 Known occupational exposures/hazards (Current/Previous): Gamma radiation, [place] Service: Yes Dates of Service: [id number] Are you following a diet prescribed by a doctor: No Are you following a special diet: Yes Special Diet Details: Abel diet POLST Patient has POLST: Yes POLST Status: DNR Review of Systems Constitutional Denies: Fatigue, Fever, Chills, Malaise, Weakness or Poor appetite Eyes Reports: Irritation, Eye discomfort and Dry eyes (chronic); Denies: Pain, Blurry vision, Vision loss or Diplopia Ears, nose, mouth, and throat Denies: Ear pain, Hearing loss, Tinnitus, Nose bleeds, Nasal discharge, Mouth lesions, Bleeding gums or Neck pain Cardiovascular Reports: Irregular heart rate; Denies: chest pain, palpitations, edema, Syncope or shortness of breath with exertion Respiratory Denies: Shortness of breath, Cough, Sputum production or Wheezing Gastrointestinal Reports: Rectal bleeding, Melena and Blood in stool; Denies: Abdominal pain, Abdominal distention, Nausea, Vomiting, Heartburn, Diarrhea or Constipation Genitourinary Denies: Painful urination, Urinary frequency or Urinary urgency Musculoskeletal Denies: Back pain, Neck pain, Extremity pain, Extremity swelling or Joint pain Integumentary/Breast Denies: Rash, Itching, Dryness, Redness or Skin pain Neurological Denies: Headache, General weakness, Weakness in extremities, Numbness in extremities, Abnormal gait or Dizziness Psychiatric Denies: Depression, Anxiety, Mood swings or Panic attacks Endocrine Denies: Excessive urination, Excessive thirst or Fatigue Hematologic/Lymphatic Denies: Anemia, Easy bruising or Easy bleeding Allergic/Immunologic Denies: Hives, Tongue swelling, Facial swelling or Wheezing Prior Level of Functionality: Independent of ADLs. Exam Exam Vital Signs: Vital Signs x48h Temp Pulse Pulse Resp BP BP Pulse Ox 02/21/25 09:35 97.7 F 77 16 149/86 H 98 02/21/25 09:03 97.9 F 70 16 116/66 96 02/21/25 08:00 70 16 123/73 96 02/21/25 06:59 86 18 104/78 95 02/21/25 05:30 82 20 98/68 94 02/21/25 04:51 96.8 F L 94 16 119/73 96 Constitutional normal general appearance, no apparent distress, abnormal body habitus (overweight), no limitations and alert HENMT normocephalic and head/scalp atraumatic Eyes PERRL and EOMs intact bilaterally Neck/C-Spine visual inspection normal Lymph no lymphedema noted Chest inspection of chest normal and palpation of chest normal Respiratory breath sounds equal bilaterally, normal respiratory effort, clear to auscultation bilaterally, no wheezes, no rales and no retractions Cardiovascular heart rate abnormal, rhythm abnormal (irregular), no gallop, no rub and no murmur Gastrointestinal abdomen normal to inspection, abdomen soft to palpation, nontender to palpation and nontender to percussion Genitourinary no CVA tenderness and bladder normal to palpation Back/Pelvis spine normal to inspection, no thoracic spine tenderness and no lumbar spine tenderness Extremities normal to inspection, normal to palpation, no tenderness and full ROM Neurology no movement abnormality noted and no focal motor deficit noted Psychiatry mental status grossly normal, oriented x3, thought process normal, cooperative and affect normal Skin skin color normal, no rash and no lesions Conclusion/Plan Problem List (1) Hematochezia: Plan: Patient presents with bright red blood per rectum, 3 episodes overnight. Hemoglobin dropped from 15.4 few weeks ago to 12.1 today. Last colonoscopy was in 2022, and revealed polyps, tubular adenomas. Patient is also on Eliquis. Held at this time. We had a long discussion on the benefits versus risks of continuing Eliquis. Will reach out to his rivet maker. Do recommend holding currently. Continue IV fluids, IV Protonix twice daily, clear liquid diet. Will trend H&H every 8 hours. (2) Acute anemia: Plan: See above. (3) Gout: Plan: Continue allopurinol. 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 Hold lisinopril today, will continue tomorrow. (5) Hypertension, essential, benign: Plan: Continue metoprolol. (6) Atrial fibrillation: Plan: Continue metoprolol. Eliquis currently held. Qualifiers: Atrial fibrillation type: unspecified Qualified Code(s): I48.91 - Unspecified atrial fibrillation Lab Results Lab results reviewed: Yes 02/21/25 06:25 02/21/25 06:25 Diagnostic Imaging Results Diagnostic Imaging Results: positive Final report reviewed EKG Results EKG Interpreted Independently: Yes Core Measures Anticipated LOS I expect patient to be DC'd or transferred within 96 hours.: Yes DVT/VTE - Prophylaxis VTE/DVT Device ordered at admit?: Yes VTE/DVT Prophylaxis med ordered at admit?: No Not Ordered - Medical Reason: Contraindicated
[2025-02-21 14:12] LABS: HCT - HEMATOCRIT 33.6 % (42.0-52.0); HGB - HEMOGLOBIN 11.2 g/dL (14.0-18.0)
[2025-02-21] MEDS: METOPROLOL SUCCINATE 25 MG TABLET PO SCH (14:42)
[2025-02-21 21:59] LABS: HCT - HEMATOCRIT 31.6 % (42.0-52.0); HGB - HEMOGLOBIN 10.8 g/dL (14.0-18.0)
[2025-02-21] MEDS: LATANOPROST 0.005% OPHTH DROPS LEFTEYE SCH (22:10)
[2025-02-22 05:57] LABS: HCT - HEMATOCRIT 31.1 % (42.0-52.0); HGB - HEMOGLOBIN 10.6 g/dL (14.0-18.0)
[2025-02-22] MEDS: allopurinoL 100 MG TABLET PO SCH (08:50)
--- NOTE | 2025-02-22 11:17 | PROVIDER PROGRESS NOTE ---
Subjective Subjective Subjective: Patient is feeling better. He is not feeling dizzy, lightheaded. He had 1 more bowel movement overnight. He said that there was a little bit of blood that he noted in it, but not bright red blood as it was prior to coming in. Current Medications Current Medications Current Medications: Current Medications Generic Name Dose Route Start Last Admin Trade Name Freq PRN Reason Stop Dose Admin Allopurinol 200 mg 02/22/25 09:00 02/22/25 08:50 Allopurinol 100 Mg Tablet PO Not Given DAILY AJIT Lactated Ringer's 1,000 mls @ 75 mls/hr 02/21/25 09:42 02/21/25 23:31 Lr IV 75 mls/hr .[id number] AJIT Administration Latanoprost 1 drops 02/21/25 21:00 02/21/25 22:10 Latanoprost 0.005% Ophth Drops LEFTEYE 1 drops QPM AJIT Administration Metoprolol Succinate 25 mg 02/21/25 13:00 02/22/25 08:50 Metoprolol Succinate 25 Mg Tablet PO 25 mg DAILY AJIT Administration Ondansetron HCl 4 mg 02/21/25 09:42 Ondansetron Odt 4 Mg Tablet TL Q6HR PRN Nausea / Vomiting Ondansetron HCl 4 mg 02/21/25 09:42 Ondansetron 4 Mg/2 Ml Vial IVP Q6HR PRN Nausea / Vomiting Pantoprazole Sodium 40 mg 02/21/25 09:00 02/22/25 08:49 Pantoprazole 40 Mg Vial IVP 40 mg BID AJIT Administration Turmeric 400 Mg 1 each 02/22/25 09:00 02/22/25 08:50 Capsule PO Not Given DAILY AJIT Sodium Chloride 10 ml 02/21/25 09:42 Sodium Chloride Flush 0.9% 10 Ml Syringe IVP PRN PRN NEEDED PER PROVIDER ORDERS Sodium Chloride 10 ml 02/21/25 09:42 02/22/25 08:50 Sodium Chloride Flush 0.9% 10 Ml Syringe IVP 10 ml 0100,0900,1700 AJIT Administration Objective Vital Signs/Intake & Output Reviewed Vital Signs: Yes Vital Signs: Vital Signs x48h Temp Pulse Resp BP Pulse Ox 02/22/25 08:08 97.5 F L 72 17 132/84 H 96 02/22/25 04:52 97.7 F 72 17 139/89 H 99 Intake & Output: Intake & Output 02/19/25 02/20/25 02/21/25 02/22/25 23:59 23:59 23:59 23:59 Intake Total 2108 360 / 360 Balance 2108 360 / 360 Weight (kg) 103 kg Objective General Appearance: positive No acute distress and Alert; negative Anxious Eyes Bilateral: positive Normal inspection, PERRL and EOMI ENT: positive ENT inspection nml, Pharynx nml and No signs of dehydration Neck: positive Nml inspection, Thyroid nml and No JVD Respiratory: positive Chest non-tender, No respiratory distress and Breath sounds nml; negative Wheezes, Rales or Rhonchi Cardiovascular: positive No murmur, No gallop and Irregularly irregular; negative Tachycardia or Systolic murmur Abdomen: positive Non-tender, No organomegaly and No distention; negative Guarding or Splenomegaly Back: positive Nml inspection; negative CVA tenderness (R) or CVA tenderness (L) Skin: positive Color nml, No rash, Warm and Dry Extremities: positive Non-tender, Full ROM, Nml appearance and No pedal edema Neurologic/Psychiatric: positive Oriented x3, Motor nml and Mood/affect nml Lab Results 02/22/25 05:52 02/21/25 06:25 Other Labs: Lab Results x24hrs 02/22/25 02/21/25 02/21/25 Range/Units 05:52 21:53 13:56 Hgb 10.6 L 10.8 L 11.2 L (14.0-18.0) g/dL Hct 31.1 L 31.6 L 33.6 L (42.0-52.0) % Diagnostic Imaging Diagnostic Imaging Results: positive Final report reviewed Assessment/Plan Problem List (1) Hematochezia: Impression: Patient presents with bright red blood per rectum, 3 episodes overnight. Hemoglobin dropped from 15.4 few weeks ago to 12.1 on admission. Overnight, it dropped further to 10.2. Last colonoscopy was in 2022, and revealed polyps, tubular adenomas. Patient is also on Eliquis. Held at this time. We had a long discussion on the benefits versus risks of continuing Eliquis. Will reach out to his peg driver. Do recommend holding currently. Continue IV Protonix twice daily. Full liquid diet. Will trend H&H every 8 hours. If stabilizes over the next 24 hours, will discharge without Eliquis. Will advise to follow up with cardiology regarding resumption of anticoagulation, follow up scopes in outpatient with surgery. If continues to drop, will prep him for colonoscopy/flexible sigmoidoscopy tomorrow - spoke with general surgeon regarding this. (2) Acute anemia: Impression: See above. (3) Gout: Impression: Continue allopurinol. 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 Continue lisinopril. (5) Hypertension, essential, benign: Impression: Continue metoprolol and lisinopril. (6) Atrial fibrillation: Impression: Continue metoprolol. Eliquis currently held. Qualifiers: Atrial fibrillation type: unspecified Qualified Code(s): I48.91 - Unspecified atrial fibrillation
[2025-02-22 14:09] LABS: HGB - HEMOGLOBIN 10.8 g/dL (14.0-18.0)
[2025-02-22] MEDS: SODIUM CHLORIDE FLUSH 0.9% 10 ML SYRINGE IVP PRN (22:11)
[2025-02-22 23:46] VITALS: TEMP 97.5
[2025-02-23 06:01] LABS: HGB - HEMOGLOBIN 11.2 g/dL (14.0-18.0); MEAN CORPUSCULAR HEMOGLOBIN 34.3 pg (27.0-31.0); MEAN CORPUSCULAR HGB CONC 33.9 g/dL (32.0-36.0); MEAN CORPUSCULAR VOLUME 100.9 fL (80.0-94.0); MEAN PLATELET VOLUME 10.5 fL (7.4-11.4); RED BLOOD COUNT 3.27 10^6/uL (4.70-6.10); RED CELL DISTRIBUTION WIDTH 14.2 % (12.0-15.0); WHITE BLOOD COUNT 7.1 x10^3/uL (4.8-10.8)
[2025-02-23 06:14] LABS: CALCIUM 9.1 mg/dL (8.5-10.3); MAGNESIUM 1.8 mg/dL (1.7-2.3); POTASSIUM 3.7 mmol/L (3.5-4.5)
[2025-02-23 08:58] VITALS: BP 139/76; O2SAT 99
--- NOTE | 2025-02-23 09:34 | Discharge Summary ---
"Discharge Summary Admit Date: 02/21/25 Discharge Date: 02/22/25 Discharging Provider: Dr. Paco Friedman Primary Care Provider: Giuseppe Rudolph Code Status: Attempt Resuscitation Discharge Facility Name: Home DIAGNOSES Admission Diagnoses: Hematochezia Acute anemia Gout Chronic kidney disease stage IIIa Hypertension Atrial fibrillation Discharge Diagnoses with Status of Each Condition: Hematocheziaresolved. Patient no longer having bloody bowel movements. Of note, last colonoscopy was in 2022, revealed polyps, tubular adenomas that were removed. Patient is on Eliquis for atrial fibrillation. Held during his hospital stay. Advised to hold on discharge. I left multiple messages with his cardiology office, Dr. Johns out of [place]. I have not heard back at this time. I also attempted to reach the death surveys coder on-call, but did not hear back, however, the nurse was advised that his Eliquis is going to be held, and that he would need close follow-up. I relayed this information to the patient as well. He understands the risks and benefits of Eliquis including the risk of stroke with holding it in the setting of his atrial fibrillation. Advised to follow-up closely with cardiology in the next 1 to 2 weeks to discuss things like a Watchman procedure. Patient and his daughter were informed of the above. Anemiastable at this time. Continue to monitor in the outpatient setting. Goutcontinue allopurinol. CKDcreatinine at baseline. Continue lisinopril. Hypertensioncontinue metoprolol and lisinopril. Atrial fibrillationcontinue metoprolol, Eliquis held as as above. HPI History of Present Illness: Patient is a 84-year-old man with a history of atrial fibrillation on Eliquis who presents for bright red blood per rectum. He states that he had 3 episodes starting at around 1 AM last night. He noticed blood when wiping, and he noticed that the toilet bowl was also full of blood. He takes Eliquis regularly. He tried Motrin a few weeks ago, 1 dose, but other than that, does not regularly take NSAIDs. He was a former heavy alcohol user, but has now not had a drink for about 3 weeks. He has never withdrawn from alcohol or any alcohol related seizures. He has no abdominal pain, no nausea, no vomiting. Of note, patient did have a colonoscopy done on 07/24/[address] Reynoso revealed a 5 mm polyp in the rectum, as well as another 3 mm polyp in the rectum. Both of these were resected and removed with a cold snare. Pathology results revealed tubular adenomas. Patient has been on Eliquis for the past few years, previously he was on Coumadin. His death surveys coder is Dr. Johns in [place]. He denies any lightheadedness, dizziness as well. In the ED, his blood pressure was 119/73, heart rate was 94, he was afebrile, saturating 96% on room air. Lab work was reviewedhis white count is 10.6, his hemoglobin was 12.1. Of note, when it was checked on 01/27/2025, it was 15.4. His creatinine was 1.2, which is around his baseline. He was admitted for bright red blood per rectum, anemia. Surgery was spoken with by the emergency room, and they are aware of the patient. CONSULTS | PROCEDURES Consultations: - Procedures: - HOSPITAL COURSE Hospital Course: Patient is a 84-year-old man with a history of atrial fibrillation on Eliquis who presents for bright red blood per rectum. Of note, patient did have a colonoscopy done on 07/24/[address] Reynoso revealed a 5 mm polyp in the rectum, as well as another 3 mm polyp in the rectum. Both of these were resected and removed with a cold snare. Pathology results revealed tubular adenomas. Patient has been on Eliquis for the past few years, previously he was on Coumadin. His death surveys coder is Dr. Johns in [place]. Over the course of his stay, patient stopped having bloody bowel movements. Hb was stable. Patient is on Eliquis for atrial fibrillation. Held during his hospital stay. Advised to hold on discharge. I left multiple messages with his cardiology office, Dr. Johns out of [place]. I have not heard back at this time. I also attempted to reach the death surveys coder on-call, but did not hear back, however, the nurse was advised that his Eliquis is going to be held, and that he would need close follow-up. I relayed this information to the patient as well. He understands the risks and benefits of Eliquis including the risk of stroke with holding it in the setting of his atrial fibrillation. Advised to follow-up closely with cardiology in the next 1 to 2 weeks to discuss things like a Watchman procedure. Patient and his daughter were informed of the above. Patient was deemed safe for discharge with close follow-up with his primary care provider, as well as his death surveys coder. He was advised to return if he noticed any more bright red blood in his stool, dark stools, nausea, vomiting, lightheadedness, dizziness. ALLERGIES Allergies Allergy/AdvReac Type Severity Reaction Status Date / Time No Known Drug Allergies Allergy Verified 02/23/25 17:06 MEDICATIONS Ambulatory Orders Medication Instructions Recorded Confirmed lisinopril 10 mg tablet 10 mg PO DAILY 05/10/1601/30 apixaban 5 mg tablet (Eliquis) 5 mg PO BID 12/19/22 metoprolol succinate 25 mg 25 mg PO DAILY 12/19/22 tablet,extended release 24 hr turmeric 400 mg capsule 400 mg PO DAILY 12/19/22 amlodipine 5 mg tablet 5 mg PO QDAY 07/09/24 hydrochlorothiazide 12.5 mg tablet See Rx Instructions .Route 07/15/24 02/21/25 .COMPLEX #90 tabs allopurinol 100 mg tablet 200 mg PO DAILY 02/21/25 latanoprost 0.005 % eye drops 1 drp ophthalmic (eye) Q PM 02/21/25 02/21/25 PHYSICAL EXAM AT DISCHARGE Vital Signs: Vital Signs x48h Temp Pulse Resp BP Pulse Ox 02/23/25 08:56 97.5 F L 68 16 139/76 H 99 General Appearance: positive No acute distress and Alert; negative Anxious Eyes Bilateral: positive Normal inspection, PERRL and EOMI ENT: positive ENT inspection nml, Pharynx nml and No signs of dehydration Neck: positive Nml inspection, Thyroid nml and No JVD Respiratory: positive Chest non-tender, No respiratory distress and Breath sounds nml Cardiovascular: positive No murmur, No gallop and Irregularly irregular Peripheral Pulses: positive 2+ Abdomen: positive Non-tender, No organomegaly and Nml bowel sounds; negative Guarding Back: positive Nml inspection; negative CVA tenderness (R) or CVA tenderness (L) Skin: positive Color nml, No rash, Warm and Dry Extremities: positive Non-tender, Full ROM, Nml appearance and No pedal edema Neurologic/Psychiatric: positive Oriented x3, Motor nml and Mood/affect nml LABS 02/23/25 05:44 02/23/25 05:44 DIAGNOSTIC IMAGING Diagnostic Imaging Results: Final report reviewed FOLLOW UP Follow Up: Follow up with PCP. Follow up with cardiology. Follow up with general surgery. TIME SPENT Time Spent in Discharge (Minutes): 35 Discharge Plan Discharge Patient Disposition: Home, Self Care Prescriptions: Continued hydrochlorothiazide 12.5 mg tablet See Rx Instructions .ROUTE .COMPLEX Qty: 90 3RF Dose Instruction: TAKE 1 TABLET EVERY MORNING (MAKE AN APPOINTMENT) Rx Instructions: TAKE 1 TABLET EVERY MORNING (MAKE AN APPOINTMENT) lisinopril 10 MG tablet 10 mg PO DAILY metoprolol succinate 25 MG tablet extended release 24 hr 25 mg PO DAILY Eliquis 5 MG tablet 5 mg PO BID turmeric 400 MG capsule 400 mg PO DAILY allopurinol 100 mg tablet 200 mg PO DAILY latanoprost 0.005 % drops 1 drp ophthalmic (eye) QPM Patient Comments: instill 1 drop into left eye every evening Rx Instructions: left eye only amlodipine 5 mg tablet 5 mg PO QDAY Activity Restrictions: Activity as Tolerated Diet: Soft Health Concerns: You came in because you had bright red blood in your stool. We held your Eliquis, started you on some IV fluids, and watched your hemoglobin over the last few days (this tells us what your blood levels are). This has now stabilized. You are no longer having any bleeding. We talked about the risks and benefits of the Eliquis at this time. With your history of atrial fibrillation, without the Eliquis, there is a risk of stroke. However, as you had this large bleed, I advise you to hold it at this time. I have left a message with Dr. Johns's team regarding holding your Eliquis. If I hear back from them in regards to timing to restart, I will give you a call and let you know. However, I would like you to make an appointment with them in the next 1 to 2 weeks to further discuss restarting this medication. I would also like you to follow-up with your primary care provider in the next 1 to 2 weeks so they can recheck your blood levels and make sure they are stable. Finally, I am providing you information of the general surgeon. Please make an appointment and you can discuss with them whether or not you should repeat your colonoscopy at this time. If you notice any more bright red blood, dark tarry stools, lightheadedness, dizziness, etc., please feel free to return to the emergency room. Please adhere to GI soft diet as per the instructions until you have had a few normal bowel movements. We are glad you are feeling better, thanks for letting us take care of you. Please continue close follow-up with all the specialists as outlined above. Print Language: Mongolian Patient Instructions: Diet Soft Dc Stand Alone Forms: PCP List Follow-up Care: Giuseppe Rudolph MD [Primary Care Provider] - Doretha Greenwood MD [Provider Admit Priv/Credential] - Marlon Johns MD [Physician No Access] -"
== END 2025-02-23 12:50 | disposition home or self-care (01) | DRG 379 ==
LOC: ED 04:45 → MS2 04:45
PROVIDERS: ADMIT Internal Medicine; ATTEND Internal Medicine
DX: Z86.0100 Personal history of colon polyps, unspecified; M89.8X9 Other specified disorders of bone, unspecified site; N18.31 Chronic kidney disease, stage 3a; D64.9 Anemia, unspecified; I48.91 Unspecified atrial fibrillation; I12.9 Hypertensive chronic kidney disease with stage 1 through stage 4 chronic kidney disease, or unspecified chronic kidney disease; Z86.0101 Personal history of adenomatous and serrated colon polyps; K92.1 Melena; Z87.891 Personal history of nicotine dependence; M1A.9XX0 Chronic gout, unspecified, without tophus (tophi); Z79.01 Long term (current) use of anticoagulants